=== PATIENT | female | born 1950 | race Caucasian/White ===

== ENCOUNTER 2024-04-05 09:20 | Emergency (ER) | payer OTHER, MEDICAID ==
[~2024-04-05] VITALS: Ht 152.4 cm; Wt 84.8 kg
[2024-04-05 09:35] VITALS: BP 90/58; PULSE 73; RESP 18; TEMP 97.8; O2SAT 97
[2024-04-05 10:55] VITALS: BP 90/58; PULSE 73; RESP 18; TEMP 97.8; O2SAT 97
== END 2024-04-05 10:55 | disposition home or self-care (01) ==
LOC: MED 09:20
DX: S00.31XA Abrasion of nose, initial encounter (principal); S00.81XA Abrasion of other part of head, initial encounter; G62.9 Polyneuropathy, unspecified; M19.90 Unspecified osteoarthritis, unspecified site; G89.29 Other chronic pain; R04.0 Epistaxis; Z98.890 Other specified postprocedural states; W19.XXXA Unspecified fall, initial encounter; Z91.81 History of falling; Y92.02 Mobile home as the place of occurrence of the external cause; Y99.8 Other external cause status
CPT/HCPCS: 99281